=== PATIENT | female | born 1965 | race African-American/Black ===

== ENCOUNTER 2017-12-10 22:24 | Emergency (ER) | payer BC ==
--- NOTE | 2017-12-10 23:16 | ED ---
Neurological HPI - HPI Summary HPI Summary: The patient is a 52 y/o F presenting to [facility] accompanied by with a chief complaint of an "out of body experience" and sleep deprivation starting two days ago. She had been working on a project for work two nights ago where she had stayed awake the entire night into the next day. She tried to go to sleep last night, but she reports having "zombie-like behaviors" including sitting at her computer for no reason and watching TV because she felt that she would not wake up if she went to sleep. She took some small naps but was primarily awake until 10:00 today, which is when she finally fell asleep until 19:00 today. She states she felt rested after this, but still hasn't felt like herself. She additionally c/o a static and fullness feeling in her right ear, which is currently rated 4/10 in severity. She denies fever, chills, nausea, vomiting, chest pain, and headache. She has been eating normally. She has no past medical history and does not take any medications, but she has FHx of HTN, anxiety, and brain aneurysm. - History of Current Complaint Chief Complaint: EDGeneral Stated Complaint: DIZZINESS/UNABLE TO HEAR IN RT EAR Time Seen by Provider: 12/10/17 22:56 Hx Obtained From: Patient Onset/Duration: Sudden Onset, Started days ago, Still Present Timing: Constant Onset Severity: Moderate Current Severity: Moderate Seizure Severity: Moderate Pain Intensity: 4 Pain Scale Used: 0-10 Numeric Character: Other: - feeling of an "out of body experience" Aggravating: Nothing Alleviating: Nothing Associated Signs and Symptoms: Negative: Headache, Nausea/Vomiting, Fever, Chest Pain - Allergy/Home Medications Allergies/Adverse Reactions: Allergies Allergy/AdvReac Type Severity Reaction Status Date / Time No Known Allergies Allergy Verified 12/10/17 22:29 PMH/Surg Hx/FS Hx/Imm Hx Endocrine/Hematology History: Denies: Hx Diabetes Cardiovascular History: Denies: Hx Hypertension Opthamlomology History: Denies: Hx Legally Blind EENT History: Denies: Hx Deafness Infectious Disease History: No Infectious Disease History: Denies: Traveled Outside the [place] in Last 30 Days - Family History Known Family History: Positive: Hypertension, Other - brain aneurysm in aunt, anxiety - Social History Alcohol Use: None Substance Use Type: Reports: None Smoking Status (MU): Never Smoked Tobacco Review of Systems Negative: Fever, Chills Positive: Other - feeling of static or fullness in the right ear Negative: Chest Pain Negative: Cough Negative: Vomiting, Nausea Neurological: Other - sleep deprivation, "out of body experience" Negative: Headache All Other Systems Reviewed And Are Negative: Yes Physical Exam - Summary Physical Exam Summary: Appearance: Well-appearing, Well-nourished, lying in bed comfortable Skin: Warm, dry, no obvious rash Eyes: sclera anicteric, no conjunctival pallor ENT: mucous membranes moist Neck: deferred Respiratory: No signs of respiratory distress Cardiovascular: Appears well perfused, pulses are nml Abdomen: deferred Musculoskeletal: Moving all 4 extremities without obvious discomfort Neurological: Awake and alert, mentation is normal, speech is fluent and appropriate Psychiatric: affect is normal, does not appear anxious or depressed Triage Information Reviewed: Yes Vital Signs On Initial Exam: Initial Vitals Temp Pulse Resp BP Pulse Ox 98.2 F 64 16 172/84 97 12/10/17 22:27 12/10/17 22:27 12/10/17 22:27 12/10/17 22:27 12/10/17 22:27 Vital Signs Reviewed: Yes Diagnostics - Vital Signs Vital Signs Temp Pulse Resp BP Pulse Ox 12/10/17 22:27 98.2 F 64 16 172/84 97 - Laboratory Lab Statement: Any lab studies that have been ordered have been reviewed, and results considered in the medical decision making process. Course/Dx - Diagnoses Provider Diagnoses: Sleep disturbance Discharge - Sign-Out/Discharge Documenting (check all that apply): Patient Departure - Patient will be discharged home. - Discharge Plan Condition: Good Disposition: HOME Referrals: Titus Chambers MD [Primary Care Provider] - Greg Gallagher MD [Medical Doctor] - Additional Instructions: I suspect that your present symptoms are related to the recent disruption in your sleep pattern. If your symptoms resolve once you re-establish a normal sleep schedule, nothing further need be done. If the ear symptoms do not resolve , I would recommend seeing an ENT physician, as they have much better equipment and expertise to make a precise diagnosis. In particular, I do not hear anything in your history or see anything examining you that would make me concerned about an aneurysm. - Billing Disposition and Condition Condition: GOOD Disposition: Home - Attestation Statements Document Initiated by [employer]: Yes Documenting Scribe: Carol De La Paz Provider For Whom Kellie is Documenting (Include Credential): Dr. Jovan Curtis MD Scribe Attestation: I, nat Hoyosed for Dr. Jovan Curtis MD on 12/10/17 at 2330. Scribe Documentation Reviewed: Yes Provider Attestation: The documentation as recorded by the Carol ortega accurately reflects the service I personally performed and the decisions made by me, Dr. Jovan Curtis MD
[2017-12-10 23:37] VITALS: BP 137/79
--- NOTE | 2017-12-11 03:21 | ED ---
Course/Dx - Course Course Of Treatment: MDM: Course: The patient is a 52 y/o F presenting to [facility] accompanied by with a chief complaint of an "out of body experience" and sleep deprivation starting two days ago. She had been working on a project for work two nights ago where she had stayed awake the entire night into the next day. She tried to go to sleep last night, but she reports having "zombie-like behaviors" including sitting at her computer for no reason and watching TV because she felt that she would not wake up if she went to sleep. She took some small naps but was primarily awake until 10:00 today, which is when she finally fell asleep until 19:00 today. She states she felt rested after this, but still hasn't felt like herself. She additionally c/o a static and fullness feeling in her right ear, which is currently rated 4/10 in severity. She denies fever, chills, nausea, vomiting, chest pain, and headache. She has been eating normally. She has no past medical history and does not take any medications, but she has FHx of HTN, anxiety, and brain aneurysm. Physical exam is normal. Symptoms seem to be a result of sleep deprivation. She will be diagnosed and discharged home with instructions for sleep disturbance. Return to the ED was discussed for any new or worsening symptoms. Patient understands and agrees with this plan. - Diagnoses Provider Diagnoses: Sleep disturbance Discharge - Sign-Out/Discharge Documenting (check all that apply): Patient Departure - Patient will be discharged home. - Discharge Plan Condition: Good Disposition: HOME Referrals: Titus Chambers MD [Primary Care Provider] - Greg Gallagher MD [Medical Doctor] - Additional Instructions: I suspect that your present symptoms are related to the recent disruption in your sleep pattern. If your symptoms resolve once you re-establish a normal sleep schedule, nothing further need be done. If the ear symptoms do not resolve , I would recommend seeing an ENT physician, as they have much better equipment and expertise to make a precise diagnosis. In particular, I do not hear anything in your history or see anything examining you that would make me concerned about an aneurysm. - Billing Disposition and Condition Condition: GOOD Disposition: Home - Attestation Statements Document Initiated by Scribe: Yes Documenting Scribe: Carol De La Paz Provider For Whom Scribe is Documenting (Include Credential): Dr. Jovan Kim MD Scribe Attestation: I, Carol De La Paz, scribed for Dr. Jovan Kim MD on 12/11/17 at 0321. Scribe Documentation Reviewed: Yes Provider Attestation: The documentation as recorded by the scribe, Carol De La Paz accurately reflects the service I personally performed and the decisions made by me, Dr. Jovan Kim MD
== END 2017-12-10 23:35 | disposition home or self-care (01) ==
LOC: ED 22:24
DX: G47.9 Sleep disorder, unspecified (principal)
CPT/HCPCS: 99283